=== PATIENT | female | born 1955 | race Caucasian/White ===

== ENCOUNTER 2017-11-04 10:00 | Outpatient (CLI) | payer OTHER ==
--- NOTE | 2017-11-06 13:08 | DEXA Report ---
DEXA SCAN: 11/04/2017 INDICATION: Bone densitometry screening. TECHNIQUE: Dual energy x-ray absorptiometry (DXA) was performed on a [employer] system. Regions measured are the AP spine, femoral neck, and, if needed, forearm. COMPARISON: None. In accordance with the International Society for Clinical Densitometry (ISCD) guidelines, data from previous exams may be reanalyzed using current recommendations and techniques. This is done to allow a more accurate basis for comparison with the current study. FINDINGS The data for the lumbar spine is as follows: REGION BMD (g/cm/cm) T-SCORE Z-SCORE L1 0.945 -1.5 -0.6 L2 1.024 -1.5 -0.6 L3 0.921 -2.3 -1.4 L4 0.965 -2.0 -1.1 L1-L4 0.963 -1.8 -0.9 NOTE: All evaluable vertebrae are used for classification. The data for the hip is as follows: REGION BMD (g/cm/cm) T-SCORE Z-SCORE Neck 0.801 -1.7 -0.7 TOTAL 0.880 -1.0 -0.3 NOTE: The femoral neck or total proximal femur, whichever is lowest, is used for classification. IMPRESSION WHO CLASSIFICATION, BASED ON THE INTERNATIONAL REFERENCE STANDARD, IS OSTEOPENIA FOR THE FEMORAL NECK. WHO CLASSIFICATION FOR THE LUMBAR SPINE IS OSTEOPENIA. FRACTURE RISK IS INCREASED. RECOMMENDATION: Patients with diagnosis of osteoporosis or osteopenia should have regular bone mineral density assessment. For those eligible for Medicare, routine testing is allowed once every 2 years. Testing frequency can be increased for patients who have rapidly progressing disease or for those who are receiving medical therapy to restore bone mass. COMMENT World Health Organization (WHO) definitions for osteoporosis and osteopenia: NORMAL BMD: T-score at 1.0 or higher, fracture risk is low. OSTEOPENIA BMD: T-score between 1.0 and -2.5, fracture risk is increased. OSTEOPOROSIS BMD: T-score at 2.5 or lower, fracture risk high. National Osteoporosis Foundation recommends: 1. Obtain adequate dietary calcium (at least 1200 mg per day) and vitamin D (400 -800 international units per day). 2. Participate, as appropriate, in regular weightbearing and muscle- strengthening exercise. 3. Avoid tobacco use and reduce alcohol and caffeine intake. 4. For more detailed information see the website at www.NOF.org. TD: 11/04/2017 11:12 MTDFlakito
== END 2017-11-04 10:01 | disposition home or self-care (01) ==
LOC: DI 10:00
PROVIDERS: ATTEND Physician Assistant Medical
DX: M85.89 Other specified disorders of bone density and structure, multiple sites (principal)
CPT/HCPCS: 77080

== ENCOUNTER 2020-02-02 10:16 | Emergency (ER) | payer BC, OTHER ==
[2020-02-02] MEDS ORDERED: cefTRIAXone 1 GM VIAL IM STA (10:41)
[2020-02-02] MEDS ORDERED: TETANUS/DIPHTHERIA/PERTUSSIS 0.5 ML SYRINGE IM ONE (10:41)
[2020-02-02] MEDS ORDERED: LIDOCAINE 1% 2 ML VIAL MC ONE (10:41)
[2020-02-02] MEDS ORDERED: oxyCODONE 5 MG TABLET PO STA (10:41)
[2020-02-02] MEDS ORDERED: SULFAMETH/TRIMETH DS 800/160 MG TABLET PO STA (10:41)
--- NOTE | 2020-02-02 10:44 | ED Physician Documentation ---
History of Present Illness - Stated complaint Stated Complaint: R FINGER PX - Chief complaint Chief Complaint: General - History obtained from History obtained from: Patient - History of Present Illness Timing: How many days ago (3-4) Pain level max: 8 Pain level now: 8 - Additonal information Additional information: 65-year-old female presents to the emergency department with right ring finger swelling for the past 2 to 3 days. 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 Unknown last tetanus. Nothing makes it better or worse. Review of Systems Constitutional: denies: Fever, Myalgias GI: denies: Vomiting Skin: denies: Rash PD PAST MEDICAL HISTORY - Past Medical History Cardiovascular: None GI: None : None HEENT: None Psych: None Musculoskeletal: Osteoarthritis Derm: None - Present Medications Home Medications: Ambulatory Orders Medication Instructions Recorded Confirmed Alendronate Sodium [Fosamax] 70 mg PO 01/05/13 01/05/13 Ibuprofen 200 mg PO PRN 01/05/13 01/05/13 Multivitamin [Multivitamins] 1 each PO DAILY 01/05/13 01/05/13 Cephalexin [Keflex] 500 mg PO Q6H #28 capsule 02/02/20 Hydrocodone/Acetaminophen 1 - 2 each PO Q6H PRN #14 tablet 02/02/20 [Hydrocodon-Acetaminophen 5-325] Sulfamethox/Trimeth 800/160 1 each PO BID #14 tablet 02/02/20 [Bactrim Ds 800/160] - Allergies Allergies/Adverse Reactions: Allergies Allergy/AdvReac Type Severity Reaction Status Date / Time No Known Drug Allergies Allergy Verified 01/05/13 14:46 PD ED PE NORMAL - Vitals Vital signs reviewed: Yes - General General: Alert and oriented X 3, No acute distress - HEENT HEENT: Moist mucous membranes - Neck Neck: Supple, no meningeal sign - Derm Derm: Warm and dry - Extremities Extremities: Other (R ring finger - diffuse swelling, mainly dorsum. no tenderness on tendon sheath or on palmar aspect of the hand. NVI. ) - Neuro Neuro: Alert and oriented X 3 - Psych Psych: Normal mood, Normal affect Results - Vitals Vitals: Vital Signs - 24 hr 02/02/20 02/02/20 10:19 11:14 Temperature 36.8 C Heart Rate 78 74 Respiratory 16 16 Rate Blood Pressure 146/90 H 132/78 H O2 Saturation 98 100 Oxygen O2 Source Nasal cannula PD MEDICAL DECISION MAKING - ED course Complexity details: considered differential, d/w patient ED course: Patient appears to have a cellulitis of the right ring finger. No drainable abscess. Possible early tenosynovitis, though no tendon pain. Still has good range of motion of the finger. We will trial on antibiotics and if she does not improve in the next 24 hours, would consider orthopedic consultation at that time. No pulmonary tenderness to suggest deep space infection in the hand. Patient counseled regarding signs and symptoms for which I believe and urgent re-evaluation would be necessary. Patient with good understanding of and agreement to plan and is comfortable going home at this time This document was made in part using voice recognition software. While efforts are made to proofread this document, sound alike and grammatical errors may occur. Departure - Departure Disposition: 01 Home, Self Care Clinical Impression: Cellulitis of finger Qualifiers: Laterality: right Qualified Code(s): L03.011 - Cellulitis of right finger Condition: Good Instructions: ED Infec Skin Cellulitis Follow-Up: return,here in 2 days for wound check [Other] Prescriptions: Cephalexin [Keflex] 500 mg PO Q6H #28 capsule Hydrocodone/Acetaminophen [Hydrocodon-Acetaminophen 5-325] 1 - 2 each PO Q6H PRN #14 tablet PRN Reason: pain Sulfamethox/Trimeth 800/160 [Bactrim Ds 800/160] 1 each PO BID #14 tablet Comments: Take all antibiotics until gone. Return if you worsen. If you are improving, you should return in 2 days for a wound check. Return sooner if you are worsening. You can wear the splint as needed for comfort. Do not drink alcohol or drive while on narcotic pain medicine. Note that many narcotic pain relievers also contain tylenol/acetaminophen. Please ensure that your total dose of acetaminophen from all sources does not exceed 3 grams (3000mg) per day. You may constipated on this medication, take a stool softener such as "Colace" twice a day while you are on it. Also recommend a [id number] laxative such as senna or MiraLAX any day that you do not have a bowel movement. If you received narcotic pain medication in the emergency department, do not drive or operate machinery for the next 24 hours. Discharge Date/Time: 02/02/20 11:13
[2020-02-02 11:14] VITALS: BP 132/78
== END 2020-02-02 11:13 | disposition home or self-care (01) ==
LOC: ED 10:16
DX: L03.011 Cellulitis of right finger (principal); Z23 Encounter for immunization
CPT/HCPCS: 90471; 90715; 96372; 99283; 99284; A9270

== ENCOUNTER 2020-02-04 10:19 | Day surgery (SDC) | payer OTHER ==
--- NOTE | 2020-02-04 11:17 | ED Physician Documentation ---
PD HPI WOUND RECHECK - Stated complaint Stated Complaint: WOUND CHK - Chief complaint Chief Complaint: Wound - Histroy obtained from History obtained from: Patient - History of Present Illness Location: Other (R hand) Pain level max: 8 Pain level now: 8 Associated symptoms: Redness, Swelling Recently seen: Emergency Dept - Additional information Additional information: 65-year-old female presents to the emergency department with a hand infection to the right fourth digit. Seen here 2 days ago for same. She was placed on antibiotics at that time including an IM injection. She states she has significantly worsened since that time. No fevers. Nothing makes it better or worse. Review of Systems Constitutional: denies: Fever Nose: denies: Rhinorrhea / runny nose, Congestion GI: denies: Vomiting Skin: denies: Rash Musculoskeletal: denies: Neck pain, Back pain Neurologic: denies: Headache PD PAST MEDICAL HISTORY - Past Medical History Cardiovascular: None GI: None : None HEENT: None Psych: None Musculoskeletal: Osteoarthritis Derm: None - Present Medications Home Medications: Ambulatory Orders Medication Instructions Recorded Confirmed Sulfamethox/Trimeth 800/160 1 each PO BID #14 tablet 02/02/20 [Bactrim Ds 800/160] - Allergies Allergies/Adverse Reactions: Allergies Allergy/AdvReac Type Severity Reaction Status Date / Time No Known Drug Allergies Allergy Verified 01/05/13 14:46 - Social History Does the pt smoke?: No Smoking Status: Never smoker PD ED PE NORMAL - Vitals Vital signs reviewed: Yes - General General: Alert and oriented X 3, No acute distress - HEENT HEENT: Moist mucous membranes - Neck Neck: Supple, no meningeal sign - Derm Derm: Warm and dry - Extremities Extremities: Other (Right fourth digit with fusiform swelling, erythema. The erythema extends to the dorsum of the hand. No palmar tenderness. Neurovascular intact) - Neuro Neuro: Alert and oriented X 3 - Psych Psych: Normal mood, Normal affect Results - Vitals Vitals: Vital Signs - 24 hr 02/04/20 10:29 Temperature 37.0 C Heart Rate 86 Respiratory 18 Rate Blood Pressure 126/72 O2 Saturation 99 Oxygen O2 Source Room air PD MEDICAL DECISION MAKING - ED course Complexity details: reviewed results, re-evaluated patient, considered differential, d/w patient, d/w financial consultant ED course: Patient with worsening fusiform swelling of the right fourth digit. Discussed the case with orthopedics, Dr. Blum, he will take the patient to the operating room for debridement. This document was made in part using voice recognition software. While efforts are made to proofread this document, sound alike and grammatical errors may occur. Departure - Departure Disposition: ED Transfer to [facility] Clinical Impression: Flexor tenosynovitis of finger Condition: Stable
--- NOTE | 2020-02-04 11:30 | XRAY Report ---
PROCEDURE: Finger(s) RT INDICATIONS: R ring finger swelling TECHNIQUE: 3 views of the right finger(s) acquired. COMPARISON: None available FINDINGS: Bones: There is an apparent comminuted, intra-articular fracture seen involving the distal aspect of the middle phalanx of the fifth finger. Degenerative changes are seen throughout, with relatively prominent osteophyte formation. Several int erphalangeal joints demonstrate a "pencil in cup" deformity. Soft tissues: Soft tissue swelling is seen, particularly involving the fourth finger. IMPRESSION: These imaging findings are compatible with psoriatic arthritis. Please correlate with known patient h istory. Apparent fracture of the distal aspect of the middle phalanx of the fifth finger. However, differenti al diagnosis includes artifact from bony irregularity with osteophyte formation. Please correlate wit h focal tenderness. Reviewed by: Gera Saleem MD on 02/04/2020 10:29 AM ZEHRA Approved by: Gera Saleem MD on 02/04/2020 10:29 AM ZEHRA Station ID: [id number]
--- NOTE | 2020-02-04 11:46 | HISTORY & PHYSICAL EXAMINATION ---
HPI - Admitted From Admitted from: ED - History Obtained From History obtained from: Patient Exam limitations: No limitations - History of Present Illness Severity at the worst: reports: Severe Pain Quality: reports: Sharp Context-Pain started w/: reports: Movement Timing: reports: Abrupt onset Duration: reports: Days: (4) Improved with: reports: Nothing Worsened by: reports: Movement Associated symptoms: reports: Other (This is a 65-year-old woman who complains of pain, redness and swelling to the entire right fourth finger that developed approximately 4 days ago. She was seen approximately 2 days in the emergency room and was thought to have cellulitis of the ring finger; she was given Bactrim and Keflex and has worsened since using the antibiotics. Her finger is more swollen, more red and more painful and she has marked difficulty trying to flex the finger. She denies any specific injury to the right fourth finger. 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 She denies exposure to marine environment with her hand and denies any exposure to her roses. Her symptoms have significantly worsened over the past 2 days and she returns to the emergency room for reevaluation. Her general health has been good. Her dominant hand is her right hand. She does have some history of stiffness to her fingers associated with osteoarthritis of the distal joints of both hands.) PMH/PSH - Past Medical History Cardiovascular: positive: None Respiratory: positive: None Neuro: positive: None Endocrine/Autoimmune: positive: None GI: positive: None : positive: None HEENT: positive: None Psych: positive: None Musculoskeletal: positive: Osteoarthritis Derm: positive: None MRSA Hx?: No Social & Family Hx - Social History Does the pt smoke?: No Smoking Status: Never smoker Meds/Allgy - Home Medications Home Medications: Ambulatory Orders Medication Instructions Recorded Confirmed Sulfamethox/Trimeth 800/160 1 each PO BID #14 tablet 02/02/20 [Bactrim Ds 800/160] - Allergies Allergies/Adverse Reactions: Allergies Allergy/AdvReac Type Severity Reaction Status Date / Time No Known Drug Allergies Allergy Verified 01/05/13 14:46 Review of Systems - Constitutional Constitutional: reports: Chills, Other (She denies fever, chills, red streaks, malaise, night sweats. She denies cardiovascular respiratory gastrointestinal genitourinary issues) Exam - Vital Signs Vital Signs: Vital Signs x48h Temp Pulse Resp BP Pulse Ox 02/04/20 10:29 37.0 C 86 18 126/72 99 - Physical Exam General Appearance: positive: No acute distress, Alert Eyes Bilateral: positive: Normal inspection Neck: positive: Nml inspection Respiratory: positive: No respiratory distress Cardiovascular: positive: Regular rate & rhythm Peripheral Pulses: positive: 2+ Abdomen: positive: Non-tender Skin: positive: Color nml Extremities: positive: Other (The right fourth finger shows fusiform swelling, redness and diffuse tenderness along the flexor tendon. The finger is held in a position of flexion. She has marked pain when trying to extend the finger and is unable to flex the fourth finger because of pain. The palm of the hand is normal. Circulation and sensation are intact to the ring finger of the right hand. X-rays of the right fourth finger were reviewed and show degenerative joint disease to both distal and proximal interphalangeal joints with narrowing of joint, sclerosis and osteophytes.) Neurologic/Psychiatric: positive: Oriented x3, Motor nml, Sensation nml Results - Diagnostic Imaging Results Diagnostic Imaging Results: positive: Other (I have independently visualized the x-rays of the right fourth finger. There is no fracture, dislocation or foreign body. She does have degenerative joint disease to the proximal and distal interphalangeal joints of the right fourth finger with associated joint space narrowing, subchondral sclerosis and peripheral joint osteophytes) Impression/Plan - Problem List Problem List: She has a flexor tenosynovitis right 4th finger, most likely on a septic basis. The plan is to proceed with incision and drainage of the flexor tendon sheath. The second problem is she has osteoarthritis of the right ring finger as well. I have discussed the risks, goals and likelihood of achieving goals, alternatives as well as permanent disability to the ring finger. Poor function of the finger with stiffness of the ring finger is the major complication associated with infection. She already had some pre-existing stiffness from osteoarthritis but still a very functional finger prior to infection developing. I have encouraged questions. She seems to have an understanding of the procedure. This was also discussed with her who was present. She has signed informed consent agreeing to the procedure which will be done on a emergency basis to provide the best outcome for this infection which has not responded to antibiotics as outpatient.
[2020-02-04 11:50] LABS: BASOPHILS # (AUTO) 0.1 10^3/uL (0.0-0.1); BASOPHILS % (AUTO) 0.5 %; EOSINOPHILS % (AUTO) 0.3 %; HGB - HEMOGLOBIN 13.9 g/dL (12.0-16.0); LYMPHOCYTES # (AUTO) 1.8 10^3/uL (1.5-3.5); LYMPHOCYTES % (AUTO) 16.1 %; MEAN CORPUSCULAR HEMOGLOBIN 31.3 pg (27.0-31.0); MEAN CORPUSCULAR HGB CONC 32.3 g/dL (32.0-36.0); MEAN CORPUSCULAR VOLUME 97.1 fL (81.0-99.0); MEAN PLATELET VOLUME 9.2 fL (7.9-10.8); MONOCYTES # (AUTO) 0.9 10^3/uL (0.0-1.0); MONOCYTES % (AUTO) 8.4 %; NEUTROPHILS # (AUTO) 8.2 10^3/uL (1.5-6.6); NEUTROPHILS % (AUTO) 74.2 %; PLT - PLATELET COUNT 261 10^3/uL (130-450); RED BLOOD COUNT 4.44 10^6/uL (4.20-5.40); RED CELL DISTRIBUTION WIDTH 12.7 % (12.0-15.0); WHITE BLOOD COUNT 11.1 x10^3/uL (4.8-10.8)
[2020-02-04 12:12] LABS: CALCIUM 9.7 mg/dL (8.5-10.3); CREATININE 0.9 mg/dL (0.4-1.0); CRP - C-REACTIVE PROTEIN 6.2 mg/dL (0-1.0)
[2020-02-04] MEDS ORDERED: BUPIVACAINE 0.25% PF 30 ML VIAL ONE (12:15)
[2020-02-04] MEDS ORDERED: fentaNYL 100 MCG/2 ML VIAL IVP ONE (12:17)
[2020-02-04] MEDS ORDERED: DEXAMETHASONE 4 MG/ML VIAL IVP ONE (12:17)
[2020-02-04] MEDS ORDERED: LIDOCAINE-MPF 2% 5 ML VIAL IM ONE (12:17)
[2020-02-04] MEDS ORDERED: LACTATED RINGERS 1,000 ML IV ONE (12:17)
[2020-02-04] MEDS ORDERED: PROPOFOL 200 MG/20 ML VIAL IVP ONE (12:17)
[2020-02-04] MEDS ORDERED: ROPIVACAINE 0.5% PF 20 ML AMPULE EP ONE (12:17)
[2020-02-04] MEDS ORDERED: MIDAZOLAM 2 MG/2 ML VIAL IVP ONE (12:17)
[2020-02-04] MEDS ORDERED: BUPIVACAINE 0.25% PF 30 ML VIAL SUBQ ONE (12:53)
--- NOTE | 2020-02-04 12:56 | ANESTHESIA ---
Pre-Anesthesia VS, & Labs - Diagnosis Right ring finger extensor tendon infection - Procedure I&D right extensor tendon Vital Signs: Temp Pulse Resp BP Pulse Ox 37.0 C 86 18 126/72 99 02/04/20 10:29 02/04/20 10:29 02/04/20 10:29 02/04/20 10:29 02/04/20 10:29 Height 5 ft 4 in Weight (kg) 71.668 kg Body Mass Index 27.1 - NPO Other (Patient reports she ate a granola bar and drank milk at 0900) Last Fluid Intake: 899 Last Food Intake: 899 - Is Patient ?: No - Lab Results Current Lab Results: Laboratory Tests 02/04/20 11:25: Sodium 137, Potassium 4.4, Chloride 98 L, Carbon Dioxide 27, Anion Gap 12.0, BUN 12, Creatinine 0.9, Estimated GFR (MDRD) 63 L, Glucose 113 H , Calcium 9.7, C-Reactive Protein 6.2 H 02/04/20 11:25: ESR 27 02/04/20 11:25: WBC 11.1 H, RBC 4.44, Hgb 13.9, Hct 43.1, MCV 97.1, MCH 31.3 H, MCHC 32.3, RDW 12.7, Plt Count 261, MPV 9.2, Neut # (Auto) 8.2 H, Lymph # (Auto) 1.8, Jay # (Auto) 0.9, Eos # (Auto) 0.0, Baso # (Auto) 0.1, Absolute Nucleated RBC 0.00, Nucleated RBC % 0.0 Fish Bones: 02/04/20 11:25 02/04/20 11:25 Home Medications and Allergies Multi-vitamin, vitamin C, tums Allergies/Adverse Reactions: Allergies Allergy/AdvReac Type Severity Reaction Status Date / Time No Known Drug Allergies Allergy Verified 01/05/13 14:46 Anes History & Medical History - Anesthetic History Anesthesia Complications: reports: No previous complications - Medical History Cardiovascular: reports: None Pulmonary: reports: None Gastrointestinal: reports: GERD (reports heart burn 2x per week. Uses tums for symptoms) Urinary: reports: None Neuro: reports: None Musculoskeletal: reports: Osteoarthritis Endocrine/Autoimmune: reports: None Blood Disorders: reports: None Skin: reports: None Smoking Status: Former smoker (Quit 20 years ago) - Surgical History Gynecologic: Tubal ligation, Other (Tubal ligation reversal) Exam General: Alert, Oriented x3, Cooperative, No acute distress Dental: WNL Mouth Opening: Greater than 4 Fingerbreadths Neck Mobility: Normal Mallampati classification: II Thyromental Distance: 4-6 cm Respiratory: Lungs clear, Normal breath sounds, No respiratory distress, No accessory muscle use Cardiovascular: Regular rate, Normal S1, Normal S2, No murmurs Mental/Cognitive Status: Alert/Oriented X3, Normal for patient Plan Anesthesia Type: Axillary Block (Right Axillary block. Patient has not been NPO.) Consent for Procedure(s) Verified and Reviewed: Yes Code Status: Attempt Resuscitation ASA classification: 1-Healthy patient Is this case an emergency?: Yes
[2020-02-04] MEDS ORDERED: VANCOMYCIN INJ 1 GM in SODIUM CHLORIDE 0.9% 250 ML IV STA (13:00)
[2020-02-04] MEDS ORDERED: ACETAMINOPHEN 1,000 MG/100 ML 100 ML IV ONE (13:37)
[2020-02-04] MEDS ORDERED: CELECOXIB 100 MG CAPSULE PO ONE (13:37)
--- NOTE | 2020-02-04 13:46 | OPERATIVE REPORT ---
Operative Report - General Procedure Date: 02/04/20 Pre-Op Diagnosis: Flexor tendon sheath infection right fourth finger Procedure Performed: Decompression flexor tendon sheath right fourth finger for infection Post Op Diagnosis: Same as preop diagnosis - Procedure Note Primary Surgeon: Marko Blum M.D. Anesthesia Provider: Kiara Love CRNA Anesthesia Technique: Regional block Estimated Blood Loss (mL): 5 Indications: Pain, redness, swelling right ring finger despite treatment as outpatient with Bactrim and Keflex. She has had worsening of symptoms over the past 48 hours, no fever, no chills. 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 She is not diabetic but does have osteoarthritis of her fingers. Her exam showed fusiform swelling of the right ring finger, erythema of the entire ring finger, finger in a position of flexion and marked pain with extension as well as tenderness to palpation flexor tendon. Her routine radiographs did not show any fracture, dislocation or foreign body but did show degenerative changes to the distal and proximal interphalangeal joints Findings: The patient had fusiform swelling to the right ring finger. Skin was intact. There is no sign of penetrating trauma to finger. 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 The patient was placed in a supine position in the right arm on an arm extension table. The right upper extremity was prepped and draped in a sterile manner in the usual fashion. A pneumatic tourniquet had been applied to the proximal right arm over cast padding. A timeout procedure was performed by the entire operating room team and all were in agreement. No preoperative antibiotics were given until cultures obtained. A zigzag incision was made over the distal palm in line with the fourth finger. After the skin had been incised, spreading technique was utilized to expose the flexor tendon. Right angle retractors were placed on each side of the tendon to protect the neurovascular bundles. The flexor tendon sheath was opened approximately 1.5 cm. There was no overt pus encountered. A second mid axial incision was placed over the ulnar border of the finger distally. The incision was opened with a spreading technique to expose the flexor tendon sheath. The flexor tendon sheath distal to the a 4 lydia was opened over an area of about 5 mm. There was some fluid encountered and this was cultured. As mentioned, it did not look overtly purulent. A 14-gauge intravenous catheter was used to irrigate the flexor tendon sheath proximally and then distally until the effluent was clear. The tourniquet was deflated. The incisions were closed with one 4-0 nylon at each site. These incisions were loosely closed to allow for drainage. She received 2 g of Ancef and a gram of vancomycin intravenously after cultures had been obtained. She tolerated the procedure well.The tourniquet time was 25 minutes.
[2020-02-04] MEDS ORDERED: HYDROcod/ACETAM 5/325 MG TABLET PO PRN (14:10)
[2020-02-04 15:43] VITALS: BP 104/68
[2020-02-04] MEDS ORDERED: SULFAMETH/TRIMETH DS 800/160 MG TABLET PO SCH (21:00)
== END 2020-02-04 16:00 | disposition home or self-care (01) ==
LOC: ED 10:19 → SDS 11:37 → MS2 13:08 → SDS 16:00
PROVIDERS: ATTEND Orthopaedic Surgery
DX: M65.141 Other infective (teno)synovitis, right hand (principal); M19.041 Primary osteoarthritis, right hand; Z87.891 Personal history of nicotine dependence
CPT/HCPCS: 26020; 36415; 73140; 80048; 85025; 85651; 86140; 87070; 87205; A9270; J0131; J3370; J7120; 87077; 99284

== ENCOUNTER 2023-01-29 12:23 | Outpatient (CLI) | payer MEDICARE, OTHER ==
--- NOTE | 2023-01-30 10:07 | Ultrasound Report ---
LIMITED ULTRASOUND OF LEFT BREAST: 01/29/2023 CLINICAL: Palpable left breast lump. Comparison is made to exams dated: 01/29/2023 mammogram, 01/30/2011 mammogram, 04/20/2008 mammogram, 10/13 mammogram, 03/25/2007 mammogram, and 03/05/2007 mammogram - [facility]. Color flow ultrasound of the left breast 3 o'clock region was performed. Cooper scale images of the r eal-time examination were reviewed. IMPRESSION: NEGATIVE There is no sonographic evidence of malignancy. There is no abnormality seen in the left breast to correspond with the palpable abnormality at 3 o'cl ock, however, clinical correlation and clinical followup are recommended. This exam was interpreted at Station ID: [id number]. Electronically Signed By: Edmund Bradley M.D. lc/:01/29/2023 14:25:45 Ultrasound BI-RADS: 1 Negative BI-RADS CATEGORY: (1) - 1 Unspecified - other recall n/a LATERALITY: (B)
--- NOTE | 2023-01-30 10:07 | Mammography Report ---
BILATERAL DIGITAL DIAGNOSTIC MAMMOGRAM 3D/2D WITH EXAGGERATED CC AXILLARY TAIL: 01/29/2023 CLINICAL: Palpable bilateral breast lumps. Comparison is made to exams dated: 01/30/2011 mammogram, 04/20/2008 mammogram, 10/13/2007 mammogram, 03/25 mammogram, and 03/05/2007 mammogram - [facility]. Both breasts are almost entirely fatty (category a/<25% glandular tissue). There are multiple oval asymmetries in the right breast posterior depth medial region seen on the nut cracker niocaudal view only. No other significant masses, calcifications, or other findings are seen in either breast. IMPRESSION: INCOMPLETE: NEEDS ADDITIONAL IMAGING EVALUATION The multiple oval asymmetries in the right breast are indeterminate. An ultrasound is recommended. There is no abnormality seen in either breast to correspond with the palpable abnormalities, however, ultrasound is recommended. Based on the Tyrer Cuzick model (a risk assessment model) the patients lifetime risk is 8.6% and her 10 year risk is 4.2%. According to the ACR, ACS, and NCCN guidelines, an annual breast MRI exam jarett g with mammogram is recommended if the patients lifetime risk is 20% or greater. This exam was interpreted at Station ID: [id number]. NOTE: For mammograms, a report in lay terms will be sent to the patient. Approximately 15% of breast malignancies will not be visualized mammographically. In the management of a palpable breast mass, a negative mammogram must not discourage biopsy of a clinically suspicious lesion. Electronically Signed By: Edmund Bradley M.D. lc/:01/29/2023 14:22:01 ACR BI-RADS Category 0: Incomplete 3340F PARENCHYMAL PATTERN: (F) - The breast(s) demonstrate(s) diffuse fatty replacement. BI-RADS CATEGORY: (0) - 0 Ultrasound [id number] Immediate follow-up LATERALITY: (B)
--- NOTE | 2023-01-30 10:07 | Ultrasound Report ---
LIMITED ULTRASOUND OF RIGHT BREAST: 01/29/2023 CLINICAL: Palpable right breast lump. Comparison is made to exams dated: 01/29/2023 mammogram, 01/30/2011 mammogram, 04/20/2008 mammogram, 10/13 mammogram, 03/25/2007 mammogram, and 03/05/2007 mammogram - [facility]. Color flow ultrasound of the right breast 9-1 o'clock region was performed. Cooper scale images of the real-time examination were reviewed. IMPRESSION: PROBABLY BENIGN There is no abnormality seen in the right breast to correspond with the palpable abnormality at 9 o'c lock, however, clinical correlation and clinical followup are recommended. There is no abnormality seen in the right breast to correspond with the mammography finding, very pos terior central to the nipple asymmetry on CC view. A follow-up mammogram in 6 months is recommended to demonstrate stability. This exam was interpreted at Station ID: [id number]. Electronically Signed By: Edmund Bradley M.D. lc/:01/29/2023 14:25:17 Ultrasound BI-RADS: 3 Probably benign BI-RADS CATEGORY: (3) - 3 Mammogram [id number] 6 month follow-up LATERALITY: (B)
== END 2023-01-29 12:24 | disposition home or self-care (01) ==
LOC: DI 12:23
PROVIDERS: ATTEND Physician Assistant Medical
DX: R92.8 Other abnormal and inconclusive findings on diagnostic imaging of breast (principal)

== ENCOUNTER 2023-02-25 11:52 | Outpatient (CLI) | payer MEDICARE, OTHER ==
[2023-02-25 14:38] LABS: BASOPHILS # (AUTO) 0.1 10^3/uL (0.0-0.1); BASOPHILS % (AUTO) 1.3 %; EOSINOPHILS # (AUTO) 0.1 10^3/uL (0.0-0.7); EOSINOPHILS % (AUTO) 1.1 %; HCT - HEMATOCRIT 41.2 % (37.0-47.0); HGB - HEMOGLOBIN 13.4 g/dL (12.0-16.0); LYMPHOCYTES # (AUTO) 2.1 10^3/uL (1.5-3.5); LYMPHOCYTES % (AUTO) 38.6 %; MEAN CORPUSCULAR HEMOGLOBIN 31.6 pg (27.0-31.0); MEAN CORPUSCULAR HGB CONC 32.5 g/dL (32.0-36.0); MEAN CORPUSCULAR VOLUME 97.2 fL (81.0-99.0); MEAN PLATELET VOLUME 10.2 fL (7.9-10.8); MONOCYTES # (AUTO) 0.5 10^3/uL (0.0-1.0); MONOCYTES % (AUTO) 9.3 %; NEUTROPHILS # (AUTO) 2.7 10^3/uL (1.5-6.6); NEUTROPHILS % (AUTO) 49.5 %; PLT - PLATELET COUNT 243 10^3/uL (130-450); RED BLOOD COUNT 4.24 10^6/uL (4.20-5.40); RED CELL DISTRIBUTION WIDTH 13.1 % (12.0-15.0); WHITE BLOOD COUNT 5.4 x10^3/uL (4.8-10.8)
[2023-02-25 15:01] LABS: ALBUMIN 3.8 g/dL (3.2-5.5); ALBUMIN/GLOBULIN RATIO 1.3 (1.0-2.2); ALKALINE PHOSPHATASE 47 IU/L (42-121); ALT ALANINE AMINOTRANSFERASE 21 IU/L (10-60); AST ASPARTATE AMINOTRANSFERASE 19 IU/L (10-42); BILIRUBIN,TOTAL 0.7 mg/dL (0.2-1.0); BUN - BLOOD UREA NITROGEN 15 mg/dL (6-20); CALCIUM 8.9 mg/dL (8.5-10.3); CARBON DIOXIDE - CO2 28 mmol/L (21-32); CHLORIDE 103 mmol/L (101-111); CHOL/HDL RATIO 2.3 (<4.4); CHOLESTEROL 183 mg/dL; CREATININE 0.8 mg/dL (0.4-1.0); GFR - MDRD 72 (>89); GLUCOSE 109 mg/dL (70-100); HDL CHOLESTEROL 78 mg/dL; LDL CHOLESTEROL,CALCULATED 93 mg/dL; LDL/HDL RATIO 1.2 (<4.4); POTASSIUM 4.4 mmol/L (3.5-5.0); SODIUM 135 mmol/L (135-145); TOTAL PROTEIN 6.8 g/dL (6.7-8.2); TRIGLYCERIDES 61 mg/dL; VLDL CHOLESTEROL 12 mg/dL
--- NOTE | 2023-02-25 16:43 | XRAY Report ---
PROCEDURE: Foot 3 View BILAT INDICATIONS: PAIN IN BOTH FEET TECHNIQUE: 3 views of each foot were acquired. COMPARISON: None. FINDINGS: Bones: No fractures or dislocations. No suspicious bony lesions. Periarticular osteophyte formati on at the first metatarsophalangeal joints bilaterally. Calcaneal spurring bilaterally. Soft tissues: No suspicious soft tissue calcifications or masses. IMPRESSION: 1. First metatarsophalangeal joint osteoarthritis. 2. No acute fracture. No osseous lesion. If symptoms and/or clinical suspicion for pathology continue , further assessment with repeat plain films, or advanced imaging (e.g., CT, MRI, or bone scan) is re commended for further assessment. Reviewed by: Dav Hassan MD on 02/25/2023 4:41 PM PDT Approved by: Dav Hassan MD on 02/25/2023 4:41 PM PDT Station ID: [id number]
[2023-02-26 01:08] LABS: VITAMIN D 25-HYDROXY 58.6 ng/mL (30.0-100.0)
[2023-02-26 12:09] LABS: CALCIUM IONIZED SERUM 4.7 mg/dL (4.5-5.6)
== END 2023-02-25 11:53 | disposition home or self-care (01) ==
LOC: DI.S 11:52
PROVIDERS: ATTEND Internal Medicine
DX: M19.072 Primary osteoarthritis, left ankle and foot (principal); M19.071 Primary osteoarthritis, right ankle and foot; M81.0 Age-related osteoporosis without current pathological fracture; Z13.228 Encounter for screening for other metabolic disorders; Z13.29 Encounter for screening for other suspected endocrine disorder; Z13.0 Encounter for screening for diseases of the blood and blood-forming organs and certain disorders involving the immune mechanism; Z13.220 Encounter for screening for lipoid disorders
CPT/HCPCS: 36415; 80053; 80061; 82306; 82330; 83721; 84443; 85025

== ENCOUNTER 2023-04-02 10:50 | Outpatient (CLI) | payer MEDICARE, OTHER ==
--- NOTE | 2023-04-02 16:49 | DEXA Report ---
PROCEDURE: Dexa Spine and/or Hip INDICATIONS: POST MENOPAUSAL TECHNIQUE: Dual energy x-ray absorptiometry (DXA) was performed on a [employer] System. Regions measur ed are the AP Spine, femoral neck, and if needed forearm. COMPARISON: DEXA 11/04/2017. FINDINGS: Lumbar Spine: Bone Mineral Density 0.992 g/cm/cm,T score -1.6. Increased by 3%. Left Femoral Neck: Bone Mineral Density 0.712 g/cm/cm, T score -2.3. Left Hip: Bone Mineral Density 0.829 g/cm/cm,T score -1.4. Decreased by 5.8% (T score greater or equal to -1.0: NORMAL) (T score from -1.1 to -2.4: OSTEOPENIA) (T score less than or equal to -2.5 to: OSTEOPOROSIS) Impression: 1. By WHO criteria, this patient has osteopenia. 2. Compared to last exam, the patient's bone density in lumbar spine has increased by 3%, and her bon e density in left hip has decreased by 5.8%. Patients with diagnosis of osteoporosis or osteopenia should have regular bone mineral density assess ment. For those eligible for Medicare, routine testing is allowed once every 2 years. Testing frequ ency can be increased for patients who have rapidly progressing disease or for those who are receivin g medical therapy to restore bone mass. Reviewed by: Karthik Quinones MD on 04/02/2023 4:47 PM PDT Approved by: Karthik Quinones MD on 04/02/2023 4:47 PM PDT Station ID: [id number]
== END 2023-04-02 10:51 | disposition home or self-care (01) ==
LOC: DI 10:50
PROVIDERS: ATTEND Nurse Practitioner Acute Care
DX: Z78.0 Asymptomatic menopausal state (principal); M85.80 Other specified disorders of bone density and structure, unspecified site

== ENCOUNTER 2023-10-09 10:32 | Outpatient (CLI) | payer MEDICARE, OTHER ==
--- NOTE | 2023-10-12 10:31 | Ultrasound Report ---
LIMITED ULTRASOUND OF RIGHT BREAST: 10/09/2023 CLINICAL: Palpable right breast lump. Comparison is made to exams dated: 10/09/2023 mammogram, 01/29/2023 ultrasound, 01/29/2023 mammogram, 01/29 ultrasound, 01/30/2011 mammogram, and 04/20/2008 mammogram - [facility]. Color flow ultrasound of the right breast 10 o'clock region was performed. Cooper scale images of the real-time examination were reviewed. No significant abnormalities were seen sonographically in the right breast. IMPRESSION: NEGATIVE There is no sonographic evidence of malignancy. There is no abnormality seen in the right breast to correspond with the area of clinical concern and palpable abnormality in the posterior depth of the upper outer quadrant which likely represent normal fibroglandular tissue, however, recommend clinical follow up for persistent or worsening symptoms, o r development of any clinically suspicious findings. Return to annual mammogram screening schedule is recommended which is due in approximately 6 months. Findings and recommendations were conveyed to the patient during today's evaluation. This exam was interpreted at Station ID: [id number]. Electronically Signed By: Fracisco Rodríguez M.D. aty/:10/09/2023 14:17:03 Ultrasound BI-RADS: 1 Negative BI-RADS CATEGORY: (1) - 1 RECOMMENDATION: (ANNUAL) - Recommend routine annual screening mammography. [id number] return to screening LATERALITY: (B)
--- NOTE | 2023-10-12 10:31 | Mammography Report ---
UNILATERAL RIGHT DIGITAL DIAGNOSTIC MAMMOGRAM 3D/2D: 10/09/2023 CLINICAL: Patient returns for a 6 month follow up of the right breast. Comparison is made to exam dated: 01/29/2023 mammogram - [facility]. The right breast is almost entirely fatty (category a/<25% glandular tissue). The previously described oval asymmetry in the right breast posterior depth medial region seen on the craniocaudal view only is no longer seen. This is not seen in additional views. This was not seen on the prior ultrasound. No other significant masses or calcifications are seen in the breast. IMPRESSION: INCOMPLETE: NEEDS ADDITIONAL IMAGING EVALUATION There is no abnormality seen in the right breast to correspond with the area of clinical concern and palpable abnormality in the posterior depth in the upper outer quadrant, however, ultrasound is recom mended for further evaluation and is scheduled to immediately follow this examination. Previously described asymmetry in the posterior depth of the right breast is no longer visualized. Based on the Tyrer Cuzick model (a risk assessment model) the patient's lifetime risk is 4.8% and her 10 year risk is 2.4%. According to the ACR, ACS, and NCCN guidelines, an annual breast MRI exam jarett g with mammogram is recommended if the patient's lifetime risk is 20% or greater. This exam was interpreted at Station ID: [id number]. NOTE: For mammograms, a report in lay terms will be sent to the patient. Approximately 15% of breast malignancies will not be visualized mammographically. In the management of a palpable breast mass, a negative mammogram must not discourage biopsy of a clinically suspicious lesion. Electronically Signed By: Fracisco Rodríguez M.D. aty/:10/09/2023 14:15:01 ACR BI-RADS Category 0: Incomplete 3340F PARENCHYMAL PATTERN: (F) - The breast(s) demonstrate(s) diffuse fatty replacement. BI-RADS CATEGORY: (0) - 0 Ultrasound [id number] Immediate follow-up LATERALITY: (R)
== END 2023-10-09 10:33 | disposition home or self-care (01) ==
LOC: DI 10:32
PROVIDERS: ATTEND Nurse Practitioner Acute Care
DX: R92.8 Other abnormal and inconclusive findings on diagnostic imaging of breast (principal)